=== PATIENT | male | born 1995 | race African-American/Black ===

== ENCOUNTER 2019-07-21 11:07 | Emergency (ER) | payer SELFPAY ==
[2019-07-21 11:14] VITALS: BP 129/68; PULSE 80; RESP 16; TEMP 36.4; O2SAT 100; BMI 23.5
--- NOTE | 2019-07-21 11:37 | ED.URI ---
HPI - URI/Sore Throat General Chief Complaint: Upper Respiratory Symptoms Stated Complaint: bronchitis,flu Time Seen by Provider: 07/21/19 11:37 Source: patient Mode of arrival: Ambulatory Limitations: no limitations History of Present Illness HPI Narrative: This is a 23-year-old male who comes in with complaint about 24 hours of nasal congestion and chest congestion. Cough with a little bit of yellow productive sputum. Patient states that he has felt sort of tight and wheezy. He has had nasal drainage. He has had a little bit of sore throat that just started today. He felt a little bit dizzy and under the weather. Little bit of chest pressure centrally. And feels short of breath. Patient denies any nausea, no vomiting, no other GI or urinary symptoms, no rashes or skin changes. Patient states he has been diagnosed with bronchitis in the past. He has not been told he has asthma but he has used albuterol inhaler several times before. He states he sometimes had antibiotics and sometimes steroids. Patient states that his young child has been sick recently and likely gave him his infection. Related Data Home Medications Medication Instructions Recorded Confirmed albuterol sulfate 1 puff INHALATION PRN PRN 07/21/19 07/21/19 Previous Rx's Medication Instructions Recorded prednisone 40 mg PO DAILY #6 tab 07/21/19 Allergies Allergy/AdvReac Type Severity Reaction Status Date / Time No Known Drug Allergies Allergy Verified 07/21/19 11:14 Review of Systems Review of Systems ROS Unobtainable: All systems reviewed & are unremarkable except as noted in HPI and below Constitutional Constitutional: Denies chills, Reports fever(s) (subjective), Denies lethargy and Denies weakness ENT Ears, Nose, Mouth, and Throat: Reports nasal congestion, Denies sinus pain, Reports sore throat, Denies throat swelling and Denies tongue swelling Cardiovascular Cardiovascular: Reports chest pain, Denies edema and Reports dyspnea Respiratory Respiratory: Reports change in phlegm color, Reports chest congestion, Reports cough, Denies hemoptysis, Reports dyspnea and Denies wheezing Gastrointestinal Gastrointestinal: Denies abdominal pain, Denies change in bowel habits, Denies constipation, Denies diarrhea, Denies nausea and Denies vomiting Integumentary/Breasts Skin/Breast: Denies rash Neurologic Neurologic: Denies weakness Allergic/Immunologic Allergic/Immunologic: Denies throat swelling, Denies tongue swelling and Denies wheezing Patient History Medical History (Updated 07/21/19 @ 11:51 by Zaida House DO) Bronchitis (Acute) tobacco type: cigarettes (1 pack every 2-3 days) Substance Use Type: does not use Exam Narrative Exam Narrative: GEN: well nourished, well appearing male, alert and oriented x 3, patient appears to be in mild distress. HEENT: Atraumatic, pupils are equal round reactive to light, extraocular movements are intact, nares are clear, TMs are clear with no fluid, there is some slight erythema in the left canal but none of the TM, there is no bulge. Normal light reflex bilaterally. Throat is clear without any exudates, erythema, tonsillar enlargement or uvular deviation, mild anterior cervical lymphadenopathy bilaterally. HEART: Regular rate and rhythm without murmur, clicks, rubs. LUNGS:Lungs decreased bilaterally to auscultation, no wheezes, rales, crackles, chest moves symmetrically, no tachypnea or accessory muscle use. ABD:bowel sounds normal, soft, non-tender, no guarding, rebound, rigidity, no masses noted, no hepatosplenomegaly MSCL: Non-tender, no muscle atrophy, muscles strength 5/5 upper and lower extremities, full range of motion, normal gait NEURO:CN 2-12 intact, sensation normal. SKIN: Rash, no petechiae, no ecchymosis. Initial Vital Signs Initial Vital Signs: Vital Signs Temperature 97.6 F 07/21/19 11:14 Pulse Rate 80 07/21/19 11:14 Respiratory Rate 16 07/21/19 11:14 Blood Pressure 129/68 07/21/19 11:14 Pulse Oximetry 100 07/21/19 11:14 Course Orders Ordered: Discontinued Medications Albuterol/Ipratropium (Duoneb) 3 ml INH NOW ONE Stop: 07/21/19 11:46 Last Admin: 07/21/19 12:15 Dose: 3 ml Documented by: MAINOR Vital Signs Vital signs: Vital Signs - 8 hr 07/21/19 11:14 07/21/19 12:16 07/21/19 13:28 Temperature 97.6 F Pulse Rate 80 96 H 67 Respiratory Rate 16 12 20 Blood Pressure 129/68 118/55 L Pulse Oximetry 100 100 99 MDM - URI/Sore Throat Lab Data Labs: Point of Care Testing Rapid Strep A Negative MDM Narrative Medical decision making narrative: recheck after duoneb. patient states he feels improved. Plan for short course of steroids as likely a viral illness causing bronchitis. Discharge Plan Departure Patient Disposition: Home Clinical Impression: Bronchitis Discharge Date/Time: 07/21/19 13:29 Instructions: DI for Acute Bronchitis Activity Restrictions/Additional Instructions: Follow up with primary care in the next 3-5 days if your symptoms are not resolving. Take prednisone once daily until gone. Use albuterol inhaler with spacer 1-2 puffs every 4 hours as needed for wheezing/shortness of breath. Return to the emergency department for fevers greater 100.4 F, new or worsening chest pain, shortness of breath, passing out, persistent vomiting, new swelling in her extremities, using a muscles in her neck or chest to assist with breathing or other new or concerning symptoms. Prescriptions: New prednisone 20 mg tablet 40 mg PO DAILY Qty: 6 RF: 0 No Action albuterol sulfate 90 mcg/actuation Hfa Aerosol Inhaler 1 puff INHALATION PRN PRN (Reason: Shortness Of Breath) RF: 0 Stand Alone Forms: Work Release Note
[2019-07-21] MEDS: ALBUTEROL/IPRATROPIUM 3 ML AMPUL INH (12:15)
[2019-07-21 12:16] VITALS: PULSE 96; RESP 12; O2SAT 100
[2019-07-21 13:28] VITALS: BP 118/55; PULSE 67; RESP 20; O2SAT 99
== END 2019-07-21 13:29 | disposition home or self-care (01) ==
PROVIDERS: Emergency Provider Emergency Medicine
DX: J40 Bronchitis, not specified as acute or chronic (principal); Z72.0 Tobacco use
CPT/HCPCS: 87880; 94640; 99282; 99283

== ENCOUNTER 2020-06-26 08:25 | Emergency (ER) | payer OTHER, MEDICAID, SELFPAY ==
[2020-06-26 08:33] VITALS: BP 146/96; PULSE 98; RESP 15; TEMP 37; O2SAT 97; BMI 25.8
--- NOTE | 2020-06-26 08:40 | ED.WOUNDLAC ---
HPI - Wound/Laceration General Chief Complaint: Wound/Laceration Stated Complaint: Fell and hit right eye, won't stop bleeding Time Seen by Provider: 06/26/20 08:27 Source: patient and other (fiance) Mode of arrival: Ambulatory Limitations: no limitations History of Present Illness HPI narrative: This is a 24-year-old male who comes to the emergency department with complaint of fall and hitting his right eye. Patient states that the bleeding will not stop he denies any vision changes. He states he does have headache and some facial pain. He denies any pain in the eyeball itself. Patient has not had any nausea or vomiting. He denies any neck or back pain. No chest pain or shortness of breath. He states he has not had any other GI or urinary issues. Patient states he was up at about 345 this morning, he had had some alcohol earlier in the evening around 7 or 8:00 p.m.. He states that he lit up to smoke some marijuana and as he was leaving the bathroom he felt dizzy and then woke up on the floor. Patient states that he is unsure how long he was out he thinks possibly 10 minutes, his fiancee who was woken up by the noise of him falling states it was a much shorter period of time. They put a bandage on the area and then tried to go back to sleep but he noted that he was having bleeding and swelling this morning and came to the emergency department. Patient has a history of hypertension he does not currently take any medications. He denies any prior surgeries. He denies any allergies to medications. He smokes 1/2 pack daily, does drink alcohol, he uses marijuana but denies other illicit. Patient's tetanus was updated 3-4 years ago. Related Data Home Medications Medication Instructions Recorded Confirmed albuterol sulfate 1 puff INHALATION PRN PRN 07/21/19 07/21/19 Previous Rx's Medication Instructions Recorded prednisone 40 mg PO DAILY #6 tab 07/21/19 erythromycin 0.5 inch EYE-RIGHT BID #1 gram 06/26/20 hydrocodone-acetaminophen [[place]] 1 tab PO Q6H PRN #10 tab 06/26/20 Allergies Allergy/AdvReac Type Severity Reaction Status Date / Time No Known Drug Allergies Allergy Verified 06/26/20 08:39 Review of Systems Review of Systems ROS Unobtainable: All systems reviewed & are unremarkable except as noted in HPI and below Constitutional Constitutional: Reports headache(s) Eyes Eyes: Denies change in vision, Denies diplopia, Denies eye discharge, Denies irritation, Denies loss of peripheral vision, Denies loss of vision, Denies eye pain and Denies photophobia ENT Ears, Nose, Mouth, and Throat: Reports as per HPI (Swelling eyelid), Reports dizziness (prior to episode.), Reports facial pain, Reports headache(s) and Denies neck pain Cardiovascular Cardiovascular: Denies chest pain, Reports syncope (x1 this morning.), Denies palpitations and Denies dyspnea on exertion Respiratory Respiratory: Denies chest congestion, Denies cough, Denies excessive phlegm production and Denies dyspnea on exertion Gastrointestinal Gastrointestinal: Denies abdominal pain, Denies change in bowel habits, Denies change in stool character, Denies diarrhea, Denies nausea and Denies vomiting Genitourinary Genitourinary: Denies urinary frequency, Denies urinary incontinence and Denies urinary urgency Genitourinary: Denies urinary frequency, Denies urinary incontinence and Denies urinary urgency Musculoskeletal Musculoskeletal: Denies abnormal gait, Denies back pain, Denies neck pain, Denies numbness and Denies tingling Integumentary/Breasts Skin/Breast: Reports as per HPI, Denies unusual bruising and Reports wounds Neurologic Neurologic: Reports as per HPI, Denies abnormal movements, Denies abnormal speech, Denies abnormal gait, Denies confusion, Reports dizziness (prior to episode.), Reports syncope (x1 this morning.), Reports headache(s), Denies localized weakness, Denies loss of vision, Denies numbness, Denies tingling and Denies paresthesias Psychiatric Psychiatric: Denies confusion Endocrine Endocrine: Denies palpitations Patient History Medical History (Updated 06/26/20 @ 08:49 by Zaida House DO) Bronchitis (Acute) Hypertension (Acute) Social History Smoking Status: Current every day smoker Smoking Status: Current every day smoker tobacco type: cigarettes alcohol intake frequency: 0-2 drinks per day Substance Use Type: does not use Exam Narrative Exam Narrative: GEN: Patient appears in mild distress. HEAD: See below, no raccoon/Bender sign. NECK: Nontender, painless range of motion, trachea midline Negative Nexus criteria, no line tenderness, distracting injury, altered mental status, neuro deficit, recent EtOH. EYES: PERRLA, EOMI Visual acuity: right [20/20], left [20/20] without correction. General: no globe trauma noted Eyelids: normal inspection on left, on the right patient has significant swelling of the right upper eyelid, patient has several areas of skin tearing the superior portion lid cross the middle and just above the eyelashes but on the lid, he is able to lift his lid to adequately visualize the iris and pupil. Patient has a small 0.25 cm laceration mid lid that is slightly gapped but not using it appears that would heal well without intervention. Close to the lid margin but not crossing and not including the hedge itself there is very small laceration that continues to use as well as skin tear with a small amount of tissue missing. Conjunctiva/Sclera: normal inspection Corneas: normal inspection. EOM: intact, no palsy/entrapment Pupils: PERRL, normal accomadation, pupil normal Anterior Chambers: normal inspection, no hypema Posterior: normal fundoscopic on right, Patient has some mild swelling of the right cheek, no lacerations or bruising noted trachea is midline, TM's are normal no hemotypanum, Nares are clear, no septal hematoma, no dental or oral injury, airway is normal and with normal occlusion, No bony tenderness RESP: Chest is nontender and has symmetric movement, no ecchymosis, breath sounds are normal no crackles, wheezes or rales CVS: Heart sounds are normal, no murmur noted, No JVD. ABG/GI: Nontender, soft, normal bowel sounds, no distention, no organomegaly. NEURO: Oriented AOx3, neuro is grossly intact, sensation and motor is normal all 4 extremities moving, cranial nerves II through XII are intact, GCS is 15 PSYCH: Normal mood and affect SKIN: Intact except as described above, warm and dry, no crepitus and without decubitus BACK: No CVA tenderness, no vertebral tenderness, no step-off's, no crepitus EXT: Atraumatic, hips are nontender, no pedal edema, normal color and temperature, normal range of motion of extremities with normal tendon exam, normal gait Initial Vital Signs Initial Vital Signs: Vital Signs Temperature 98.6 F 10/11/20 08:33 Pulse Rate 98 H 06/26/20 08:33 Respiratory Rate 15 06/26/20 08:33 Blood Pressure 146/96 H 06/26/20 08:33 Pulse Oximetry 97 06/26/20 08:33 Procedures Laceration Repair Laceration 1: Site: face Side (If applicable): right (eyelid) Size (cm): 0.5 Description: linear and clean Depth: simple, single layer Local Anesthetic: lidocaine 1% Amount of anesthesia used (mL): 0.25 Pre-repair: wound explored, irrigated extensively and deep structures intact Skin layer closed with: vicryl Size (cm): 5-0 Number of sutures: 1 Technique: simple, interrupted Scores GCS Freehold coma scale eye opening: Spontaneous Free[place] coma scale verbal response: Orientated Free[place] coma scale motor response: Obey commands Freehold coma scale total score: 15 Course Course Course Narrative: 09:50am, recheck patient bleeding has stopped. He has 1 small lacerations that appear to need suturing. They are through the superficial skin and above the lid margin. But they do gap enough that I do not believe that would heal appropriately. Patient's tetanus is up-to-date. He states he still has some pain somewhat better. Orders Ordered: ED Orders 06/26/20 08:39 EKG-12 Lead Stat Discontinued Medications Hydrocodone Bitart/Acetaminophen ([place] 5/325) 1 tab PO NOW ONE Stop: 06/26/20 08:44 Last Admin: 06/26/20 08:51 Dose: 1 tab Documented by: VIKKI Lidocaine/Sodium Bicarbonate (Buffered Lidocaine 10 Ml Syr) 10 ml INJ NOW ONE Stop: 06/26/20 09:52 Last Admin: 06/26/20 10:15 Dose: 10 ml Documented by: VIKKI Tranexamic Acid (Cyklokapron) 1,000 mg MM NOW ONE Stop: 06/26/20 08:40 Last Admin: 06/26/20 08:51 Dose: 1,000 mg Documented by: VIKKI Vital Signs Vital signs: Vital Signs - 8 hr 06/26/20 08:33 Temperature 98.6 F Pulse Rate 98 H Respiratory Rate 15 Blood Pressure 146/96 H Pulse Oximetry 97 MDM - Wound/Laceration ECG Data Attestation: I personally reviewed and interpreted this ECG as follows: Interpretation: Sinus rhythm rate 80 P are 160 QRS of 104 and QTC of [address] elevation appreciated normal EKG. MDM Narrative Medical decision making narrative: Discussed with patient I think he would benefit from a single suture to help pull the 1 laceration closest to the edge of the lid closed. I would like him to follow-up with ophthalmology tomorrow for re-evaluation and revision if needed. Patient still continued to have some oozing after Tx a but otherwise after suture was placed she is no longer having any oozing. Was given erythromycin ophthalmic for the outer eye but if it gets in the eye it is appropriate medication. He has not had any vision changes, he did have an episode of syncope I suspect this may be secondary to having had alcohol earlier in the evening, marijuana just before as well as micturation just before in the middle of the night. EKG does not show acute changes today. Patient has been well otherwise throughout his stay and ambulated to the department. Patient's tetanus is up-to-date. We did discuss return precautions which patient feels comfortable with that he is with his fiancee who he lives with. Discharge Plan Departure Patient Disposition: Home Clinical Impression: Eyelid laceration, right Syncope Qualifiers: Encounter type: initial encounter Instructions: DI for Laceration Repair Activity Restrictions/Additional Instructions: Follow-up with ophthalmology tomorrow, call tomorrow morning after 8am for repeat evaluation. Wound Care: Keep wound(s) clean and dry. Wash daily with soap and water only. Do not use over the counter products (alcohol or peroxide)on the wounds unless instructed by a physician. You may use erythromycin topically to the affected area once to twice daily. If wound condition worsens (increased/expanding redness, developing fluid blisters, or worsening pain), either contact your doctor for an urgent re-assessment , or return to the Emergency Department. Return to the Emergency Department for any new or worsening symptoms. You may also call [phone] to help you established with a primary care physician for your known hypertension. Return if fever greater than 100.4 Fahrenheit, increased swelling, increasing pain or worsening symptoms such as increased discharge or spreading redness. Severe headaches, persistent vomiting, neck pain, pain in the eyeball itself, new vision changes or any other new or concerning symptoms. Prescriptions: New erythromycin 5 mg/gram (0.5 %) ointment 0.5 inch EYE-RIGHT BID Qty: 1 RF: 0 hydrocodone-acetaminophen [[place]] 5-325 mg tablet 1 tab PO Q6H PRN (Reason: pain) Qty: 10 RF: 0 No Action albuterol sulfate 90 mcg/actuation Hfa Aerosol Inhaler 1 puff INHALATION PRN PRN (Reason: Shortness Of Breath) RF: 0 prednisone 20 mg tablet 40 mg PO DAILY Qty: 6 RF: 0 Referrals: Farhan Mejía MD [Physician] -
[2020-06-26] MEDS: TRANEXAMIC ACID 1,000 MG VIAL 1000 MG MM (08:51)
[2020-06-26] MEDS: HYDROCODONE/ACET 5/325 TABLET 1 TAB PO (08:51)
[2020-06-26] MEDS: LIDO 1%/SOD BICARB 8.4% (10ML) 10 ML SYRINGE INJ (10:15)
== END 2020-06-26 11:37 | disposition home or self-care (01) ==
PROVIDERS: Emergency Provider Emergency Medicine
DX: S01.111A Laceration without foreign body of right eyelid and periocular area, initial encounter (principal); W19.XXXA Unspecified fall, initial encounter; R55 Syncope and collapse; R51.9 Headache, unspecified; R07.9 Chest pain, unspecified
CPT/HCPCS: 12011; 93005; 99283; 99284

== ENCOUNTER 2020-06-27 15:49 | Emergency (ER) | payer OTHER, MEDICAID, SELFPAY ==
[2020-06-27 15:52] VITALS: BP 143/82; PULSE 74; RESP 16; TEMP 36.6; O2SAT 100; BMI 34.4
--- NOTE | 2020-06-27 16:20 | ED_ITS ---
HPI - Headache <LEANA Garvey - Last Filed: 06/27/20 21:23> General Chief Complaint: Headache Stated Complaint: HEAD HURTING ALL DAY Time Seen by Provider: 06/27/20 16:10 Mode of arrival: Ambulatory History of Present Illness HPI Narrative: 24yo male with seen in the ED yesterday for a vasovagal syncope episode with an eye lid laceration that was repaired, returns emergency department for a worsening headache. Patient states he has been taking ibuprofen and hydrocodone but the headache has worsened. He states the headache on his right side, throbbing and dull aching, worse with movement. Denies history of migraines. Patient denies any worsening eye pain, discharge from wound, fevers, chills, nausea, vomiting, diarrhea, chest pain, shortness of breath, or any other concerns. Related Data Home Medications Medication Instructions Recorded Confirmed albuterol sulfate 1 puff INHALATION PRN PRN 07/21/19 07/21/19 Previous Rx's Medication Instructions Recorded prednisone 40 mg PO DAILY #6 tab 07/21/19 erythromycin 0.5 inch EYE-RIGHT BID #1 gram 06/26/20 hydrocodone-acetaminophen [[place]] 1 tab PO Q6H PRN #10 tab 06/26/20 Allergies Allergy/AdvReac Type Severity Reaction Status Date / Time No Known Drug Allergies Allergy Verified 06/27/20 15:57 Review of Systems <LEANA Garvey - Last Filed: 06/27/20 21:23> Review of Systems Narrative: REVIEW OF SYSTEMS: GENERAL: Denies fever or chills. HENT: Complains of headache post head trauma yesterday, see HPI. EYES: No vision changes,no worsening pain to eyelid, see HPI. CARDIOVASCULAR: No chest pain. RESPIRATORY: No shortness of breath or cough. GASTROINTESTINAL: No nausea, vomiting, diarrhea, or constipation. GENITOURINARY: No flank pain. MUSCULOSKELETAL: No pain. INTEGUMENTARY: No rash, lesions, or pruritus. NEURO: No numbness, tingling, memory loss, or confusion. PSYCH: No behavior or mood changes. Patient History <LEANA Garvey - Last Filed: 06/27/20 21:23> Medical History Bronchitis (Acute) Hypertension (Acute) Social History Smoking Status: Current every day smoker Smoking Status: Current every day smoker tobacco type: cigarettes alcohol intake frequency: 0-2 drinks per day Substance Use Type: does not use Exam <LEANA Garvey - Last Filed: 06/27/20 21:23> Initial Vital Signs Initial Vital Signs: Vital Signs Temperature 97.8 F 06/27/20 15:52 Pulse Rate 74 06/27/20 15:52 Respiratory Rate 16 06/27/20 15:52 Blood Pressure 143/82 H 06/27/20 15:52 Pulse Oximetry 100 06/27/20 15:52 PHYSICAL EXAMINATION: GENERAL: Healthy-appearing 24-year-old male, awake and alert, answers questions appropriately and probably. HENT: Normocephalic, atraumatic. Ear canals patent. Oral mucosa is pink and moist. EYES: PERRLA, EOMIs (although difficult to evaluate right eye due to eyelid swelling) Right eye with sutured laceration, no erythema, small amount of swelling noted. Conjunctiva pink, sclera white, no periorbital swelling. CHEST: Normal to inspection and without deformities. CARDIOVASCULAR: Regular rate. RESPIRATORY: Normal respiratory rate, trachea midline, airway patent. No stridor, nasal flaring or accessory muscle use. MUSCULOSKELETAL: Normal gait and coordination. Equal tone and mass bilaterally. EXTREMITIES: CMS intact. Moves all extremities. SKIN: Warm, dry, soft, appropriate color for ethnicity. No lesions, rashes, or wounds. NEURO: Alert and Oriented X 3. Good coordination. No ataxia, or sensory deficits, or cognitive issues. Cranial Nerves: II: Visual hendricks grossly intact. III & IV & : EOMIs V: Able to open and close jaw. VII: Facial movements symetrical. Able to close eyelids tightly. VIII: Hearing grossly intact, adequate balance. X: Uvula pronation intact. XI: Patient is able to shrug shoulders. XII: Patient is able to stick out tongue and move it side to side. PSYCH: Appropriate affect and mood. <Darryn Levy MD - Last Filed: 06/28/20 18:09> Initial Vital Signs Initial Vital Signs: Vital Signs Temperature 97.8 F 06/27/20 15:52 Pulse Rate 74 06/27/20 15:52 Respiratory Rate 16 06/27/20 15:52 Blood Pressure 143/82 H 06/27/20 15:52 Pulse Oximetry 100 06/27/20 15:52 Course <LEANA Garvey - Last Filed: 06/27/20 21:23> Course Course Narrative: Patient initially consented to IV medication for treatment of migraine, however, RN stated patient refused IV and medications that make him sleepy. He was given IM Toradol and p.o. Zofran, reported improved symptoms post medication administration. Orders Ordered: Discontinued Medications Diphenhydramine HCl (Benadryl) 25 mg IV NOW ONE Stop: 06/27/20 16:19 Last Admin: 06/27/20 16:42 Dose: Not Given Documented by: TOMASZ Sodium Chloride (Normal Saline 0.9%) 1,000 mls @ 1,000 mls/hr IV BOLUS ONE Stop: 06/27/20 17:18 Last Admin: 06/27/20 16:42 Dose: Not Given Documented by: TOMASZ Ketorolac Tromethamine (Toradol) 30 mg IV NOW ONE Stop: 06/27/20 16:19 Last Admin: 06/27/20 16:42 Dose: Not Given Documented by: TOMASZ Ketorolac Tromethamine (Toradol) 30 mg IM NOW ONE Stop: 06/27/20 16:38 Last Admin: 06/27/20 16:52 Dose: 30 mg Documented by: TOMASZ Metoclopramide HCl (Reglan) 10 mg IV NOW ONE Stop: 06/27/20 16:19 Last Admin: 06/27/20 16:42 Dose: Not Given Documented by: TOMASZ Ondansetron HCl (Zofran Odt) 4 mg SL NOW ONE Stop: 06/27/20 16:38 Last Admin: 06/27/20 16:52 Dose: 4 mg Documented by: TOMASZ Vital Signs Vital signs: Vital Signs - 8 hr 06/27/20 15:52 06/27/20 16:58 Temperature 97.8 F Pulse Rate 74 77 Respiratory Rate 16 16 Blood Pressure 143/82 H 138/86 Pulse Oximetry 100 97 <Darryn Levy MD - Last Filed: 06/28/20 18:09> Orders Ordered: Discontinued Medications Diphenhydramine HCl (Benadryl) 25 mg IV NOW ONE Stop: 06/27/20 16:19 Last Admin: 06/27/20 16:42 Dose: Not Given Documented by: TOMASZ Sodium Chloride (Normal Saline 0.9%) 1,000 mls @ 1,000 mls/hr IV BOLUS ONE Stop: 06/27/20 17:18 Last Admin: 06/27/20 16:42 Dose: Not Given Documented by: TOMASZ Ketorolac Tromethamine (Toradol) 30 mg IV NOW ONE Stop: 06/27/20 16:19 Last Admin: 06/27/20 16:42 Dose: Not Given Documented by: TOMASZ Ketorolac Tromethamine (Toradol) 30 mg IM NOW ONE Stop: 06/27/20 16:38 Last Admin: 06/27/20 16:52 Dose: 30 mg Documented by: TOMASZ Metoclopramide HCl (Reglan) 10 mg IV NOW ONE Stop: 06/27/20 16:19 Last Admin: 06/27/20 16:42 Dose: Not Given Documented by: TOMASZ Ondansetron HCl (Zofran Odt) 4 mg SL NOW ONE Stop: 06/27/20 16:38 Last Admin: 06/27/20 16:52 Dose: 4 mg Documented by: TOMASZ Vital Signs Vital signs: Vital Signs - 8 hr 06/27/20 15:52 06/27/20 16:58 Temperature 97.8 F Pulse Rate 74 77 Respiratory Rate 16 16 Blood Pressure 143/82 H 138/86 Pulse Oximetry 100 97 MDM - Headache <LEANA Garvey - Last Filed: 06/27/20 21:23> Medical Records Attestation: I reviewed the patient's medical records. Lab Data Attestation: I reviewed the patient's lab results. Imaging Data CT scan - head: Radiologist's Impression: [address] [id number] [address] Scan Report Signed Patient: [address] [facility]#: [id number] : 1995Acct:[id number] Age/Sex: 24 / MDate of Service: 06/27/20 Loc: ED Accession Number: [id number] Procedure: CT head/brain wo con Ordering Provider: Sudha Oglesby PROCEDURE: CT HEAD/BRAIN WO CON INDICATIONS: head pain post head injury 24 hours ago TECHNIQUE: Noncontrast 4.5 mm thick angled axial sections acquired from the foramen magnum to the vertex, with coronal and sagittal reformats. For radiation dose reduction, the following was used: automated exposure control, adjustment of mA and/or kV according to patient size. COMPARISON: None. FINDINGS: Image quality: Excellent. CSF spaces: Basal cisterns are patent. No extra-axial fluid collections. Ventricles are normal in size and shape. Brain: No midline shift. No intracranial masses or hemorrhage. Leiva-white matter interface is normal. Skull and face: Calvarium and visualized facial bones are intact, without suspicious lesions. Sinuses: Visualized sinuses and mastoids are clear. IMPRESSION: 1. No acute intracranial abnormalities. Dictated by: Michelle Gamez M.D. on 06/27/2020 at 16:43 Approved by: Michelle Gamez M.D. on 06/27/2020 at 16:46 [facility] Narrative Medical decision making narrative: 24-year-old male presents emergency department for worsening headache post head trauma yesterday. Less concern for any acute intracranial bleed due to intact neurological exam, no focal deficits, negative head CT. I suspect patient's headache is most likely caused by post concussion syndrome and possibly migraine. Patient is Homa refused IV medications, was given T oradol and Zofran, reports improved symptoms. He was encouraged to continue taking ibuprofen, rest, and drink plenty of fluids. Follow-up was encouraged with his PCP. Patient agreed to plan of care verbalized understanding. Discharge Plan Departure Patient Disposition: Home Clinical Impression: Headache Qualifiers: Headache type: unspecified Headache chronicity pattern: acute headache Intractability: not intractable Qualified Code(s): R51.9 - Headache, unspecified Discharge Date/Time: 06/27/20 16:59 Instructions: DI for Headache Activity Restrictions/Additional Instructions: Thank you for entrusting me with your care today. As discussed, your head CT is negative for any bleeding. You declined IV medication at this time. We have given you Toradol and Zofran, you may have a headache for the next few days. Continue to take your medications at home as directed. Follow-up with your PCP in 1-2 weeks for further evaluation if symptoms continue. Return emergency department for any new or worsening symptoms. Prescriptions: No Action erythromycin 5 mg/gram (0.5 %) ointment 0.5 inch EYE-RIGHT BID Qty: 1 RF: 0 hydrocodone-acetaminophen [[place]] 5-325 mg tablet 1 tab PO Q6H PRN (Reason: pain) Qty: 10 RF: 0 albuterol sulfate 90 mcg/actuation Hfa Aerosol Inhaler 1 puff INHALATION PRN PRN (Reason: Shortness Of Breath) RF: 0 prednisone 20 mg tablet 40 mg PO DAILY Qty: 6 RF: 0 Referrals: Miscellaneous,Doctor, [Primary Care Provider] - <Darryn Levy MD - Last Filed: 06/28/20 18:09> Cosign ED Attending Cosignature Attestation: I was immediately available in the department for consultation. This documentation has been reviewed and I agree with assessment and plan. Supervised by Darryn Levy MD
--- NOTE | 2020-06-27 16:38 | PC.NURSE ---
Pt refusing IV, states he doesnt want to be stuck again refusing benadryl states he doesnt want to be sleepy because he has to take care of his kids. Sudha Oglesby, URIEL made aware. orders changed to IM tordol and ODT zofran. Pt made aware we need to wait for CT results prior to DC. Agreeable to new plan.
[2020-06-27] MEDS: ONDANSETRON 4 MG ODT SL (16:52)
[2020-06-27] MEDS: KETOROLAC 60 MG/2 ML VIAL 30 MG IM (16:52)
--- NOTE | 2020-06-27 16:53 | PC.NURSE ---
Pt requesting prescription for vicoden. States he received an RX yesterday but its not working so he would like more or something stronger for his eye LAC and headache. Pt advised that he was ordered multiple medications today for his pain in which he refused. Sudha Oglesby NP made aware. Pt DC'd with steady gait. No new prescriptions.
[2020-06-27 16:58] VITALS: BP 138/86; PULSE 77; RESP 16; O2SAT 97
== END 2020-06-27 16:59 | disposition home or self-care (01) ==
PROVIDERS: Emergency Provider Nurse Practitioner
DX: R51.9 Headache, unspecified (principal)
CPT/HCPCS: 70450; 96372; 99284; J1885